=== PATIENT | female | born 1980 | race Asian ===

== ENCOUNTER 2021-02-27 13:38 | Outpatient (CLI) | payer OTHER, SELFPAY ==
--- NOTE | ~2021-02-27 | MR_ITS ---
EXAMINATION: MR brain/brain stem wo con DATE: 02/27/2021 14:25 INDICATION: Dizziness and giddiness. TECHNIQUE: Magnetic resonance imaging (MRI) of the brain and brainstem was performed without intraven ous contrast. Sequences included sagittal and axial T1-weighted FSE, axial diffusion-weighted FS EPI, axial T2*-weighted GRE, axial T2-weighted FLAIR Propeller, and axial T2-weighted Propeller. Apparent diffusion coefficient (ADC) maps were created. COMPARISON: None. FINDINGS: There is no intracranial hemorrhage, acute infarction, or abnormal intracranial mass lesion . The ventricles are normal in size. There is mild mucosal thickening in the ethmoid sinuses. The orb its are normal. The mastoid air cells are normal. IMPRESSION: 1. Normal brain. Reviewed, dictated and finalized at location B. LINER INSTALLER IMPRESSION: 1. Normal brain.
== END 2021-02-27 13:39 | disposition home or self-care (01) ==
LOC: ANHIMG 13:47
PROVIDERS: PCP Family Medicine; Visit Provider Nurse Practitioner Family
DX: R42 Dizziness and giddiness (principal)
CPT/HCPCS: 70551

== ENCOUNTER 2021-12-27 15:05 | Outpatient (CLI) | payer OTHER, SELFPAY ==
[2021-12-27 18:52] LABS: Basophils Absolute Auto 0.1 K/mm3 (0.0-0.1); Basophils Percent Auto 0.6 % (0.2-1.2); Eosinophils Absolute Auto 0.1 K/mm3 (0-0.3); Eosinophils Percent Auto 1.2 % (0-4.4); Hematocrit 35.6 % (37.0-47.0); Hemoglobin 11.5 g/dL (12.0-15.0); Immature Granulocyte Absolute 0.02 K/mm3 (0.00-0.031); Immature Granulocyte Percent A 0.2 % (0-0.5); Lymphocytes Percent Auto 35.3 % (18.3-44.2); Mean Corpuscular HGB Conc 32.3 g/dl (32-36); Mean Corpuscular Hemoglobin 26.1 pg (26-34); Mean Corpuscular Volume 80.9 fl (80-100); Mean Platelet Volume 10.8 fl (7.4-10.4); Monocytes Absolute Auto 0.8 K/mm3 (0.1-0.6); Monocytes Percent Auto 8.1 % (2.6-8.5); Neutrophils Absolute Auto 5.6 K/mm3 (1.3-6.7); Neutrophils Percent Auto 54.6 % (45.5-73.1); Platelet Count Result 374 k/mm3 (150-375); Red Cell Distribution Width 14.9 % (11.5-14.5); White Blood Count 10.2 K/mm3 (4.5-10.0)
[2021-12-27 19:18] LABS: Alanine Aminotransferase 25 U/L (6-35); Albumin Level 4.3 g/dL (3.5-5.1); Alkaline Phosphatase 83 U/L (38-126); Anion Gap 14 mmol/L (8-16); Aspartate Amino Transferase 30 U/L (14-36); Bilirubin,Total 0.1 mg/dL (0.2-1.3); Blood Urea Nitrogen 6 mg/dL (7-17); Carbon Dioxide 26 mmol/L (22-30); Chloride 99 mmol/L (98-107); Estimated Glomerular Filt Rate > 60; Glucose 91 mg/dL (65-110); Potassium 4.1 mmol/L (3.4-5.0); Sodium 139 mmol/L (137-145)
[2021-12-27 19:45] LABS: Appearance Urine Slightly Cloudy (Clear); Bilirubin Urine Negative (Negative); Blood Urine Negative (Negative); Color Urine Yellow (Yellow); Glucose Urine UA Negative (Negative); Ketones Urine Negative (Negative); Leukocyte Esterase Ur 2+ LEU/UL (Negative); Nitrate Urine Negative (Negative); Protein Urine Negative (Negative); Specific Grav Ur 1.025 (1.001-1.035); Urobilinogen Urine 0.2 mg/dL (<2.0); pH Urine 5.5 (5.0-9.0)
[2021-12-27 19:56] LABS: Mucus Urine Rare /lpf; Squamous Epithelial Cell Urine Few /hpf (Few); WBC Urine 21-30 /hpf
[2021-12-27 19:57] LABS: Add Urine Microscopic? YES
== END 2021-12-27 15:06 | disposition home or self-care (01) ==
LOC: ANHGOSHLAB 15:06
PROVIDERS: PCP Emergency Medicine; Visit Provider Emergency Medicine
DX: M54.9 Dorsalgia, unspecified (principal); R59.1 Generalized enlarged lymph nodes
CPT/HCPCS: 36415; 80053; 81001; 85025; 87086

== ENCOUNTER → 2022-01-04 15:23 | Outpatient (CLI) | payer OTHER, SELFPAY ==
--- NOTE | ~2022-01-04 | XR_ITS ---
XR lumbar spine min 4V DATE: 01/04/2022 15:56 INDICATION: Back pain TECHNIQUE: AP, lateral, bilateral oblique and coned lateral lumbosacral views COMPARISON: None FINDINGS: Mild levoscoliosis of the lower thoracic and lumbar spine. Normal alignment of the lumbar s pine. No fracture or bone destruction or spondylolisthesis. The lumbar pedicles are intact. The sacro iliac joints appear normal. IMPRESSION: Mild levoscoliosis Reviewed, dictated and finalized at location A. COIN DEALER IMPRESSION: Mild levoscoliosis
== END ==
PROVIDERS: PCP Emergency Medicine; Visit Provider Emergency Medicine
DX: M54.9 Dorsalgia, unspecified (principal)
CPT/HCPCS: 72110

== ENCOUNTER → 2022-01-12 13:28 | Outpatient (CLI) | payer OTHER, SELFPAY ==
--- NOTE | ~2022-01-12 | US_ITS ---
US renal BI 01/12/2022 14:00 Procedure: Realtime transabdominal ultrasound of the kidneys and bladder. Indication: Right flank pain Comparison: No prior studies for comparison. Findings: Renal echotexture is normal bilaterally without hydronephrosis, contour deforming mass or r enal calculus. The right kidney measures 8 cm and left kidney measures 9.5 cm. Bladder within normal limits. Impression: 1: Unremarkable renal ultrasound. No stones, masses or hydronephrosis. Reviewed, dictated and finalized at location B. HER MUSIC Impression: 1: Unremarkable renal ultrasound. No stones, masses or hydronephrosis.
== END ==
PROVIDERS: PCP Emergency Medicine; Visit Provider Emergency Medicine
DX: M54.9 Dorsalgia, unspecified (principal)
CPT/HCPCS: 76775

== ENCOUNTER 2022-02-05 10:06 | Outpatient (CLI) | payer OTHER, SELFPAY ==
[2022-02-05 11:39] LABS: Cholesterol 235 mg/dL (0-200); HDL Direct 45 mg/dL; Triglycerides 118 mg/dL (<150)
[2022-02-05 11:43] LABS: Hemoglobin A1C 5.8 % (<5.7)
[2022-02-05 11:49] LABS: LDL Cholesterol Direct 135 mg/dL
[2022-02-05 12:44] LABS: Folic Acid 15.8 ng/mL (2.76->20)
[2022-02-05 12:51] LABS: Vitamin D 25 Hydroxy 37.6 ng/mL
== END 2022-02-05 10:07 | disposition home or self-care (01) ==
LOC: ANHLAB 10:07
PROVIDERS: PCP Emergency Medicine; Visit Provider Emergency Medicine
DX: E66.9 Obesity, unspecified (principal); R53.83 Other fatigue; E55.9 Vitamin D deficiency, unspecified; Z01.419 Encounter for gynecological examination (general) (routine) without abnormal findings; Z13.220 Encounter for screening for lipoid disorders; Z13.29 Encounter for screening for other suspected endocrine disorder; Z13.1 Encounter for screening for diabetes mellitus
CPT/HCPCS: 36415; 80061; 82306; 82607; 82746; 83036; 84443

== ENCOUNTER 2022-03-25 09:00 | Outpatient (RCR) | payer OTHER, SELFPAY ==
--- NOTE | 2022-02-07 13:41 | PTOPEVAL1 ---
Assessment and note entered by Jayson Christensen, PT Evaluation Information Assessment Status Evaluation Diagnosis low back pain with radiating symptoms down the R LE. Onset about 6 weeks ago Subjective Information Shawanda reports she has been having low back pain for 6 weeks more on the R side and the occasional radiating pain going down to her thigh or ankle, rarely does she feel it all at once. 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 More pain with sitting than with standing or walking. Has been holding off going to the gym since the pain started and would like to get back to going on the eliptical machine, exercises bike, and stepper. No issues with sleeping. Reported Pain Level Pain Score 6: Self Report Additional Pain Score Comments not currently radiating down the RLE. Assessment PT Clinical Summary Shawanda is a 41 year old female coming into the clinic for R low back pain with occasional radiating symptoms down the R LE. She has tightness in RON calfs and quads along with weakness in her low back, core, and glute muscles. Physical therapy will work on improving muscle alignment through stretches and general strengthening along with manual therapy and modalities to work on pain control. Physical therapy is fine with patient going back on the eliptical machine and attempting the stepper, but holding off the bike for right now. Plan of Care Interventions Electrical Stimulation,Gait Training,Hot Pack/Cold Pack,Manual Therapy,Mechanical Traction,Neuro Re- education,Patient/Caregiver Education,Therapeutic Activities,Therapeutic Exercise,Ultrasound PT Services Indicated Yes Treatment Frequency and 1-2x/wk Duration These treatments will address the objective and functional deficits as defined above. The patient will be advanced safely and appropriately in order for the patient to progress towards his/her prior level of function. Additional exercises will be introduced and as well as a comprehensive home exercise program upon discharge, if needed, ?to ensure carryover of functional gains achieved in the clinic. This treatment plan has been reviewed and agreement upon by the patient.
--- NOTE | 2022-02-07 13:41 | PTOPEVAL1 ---
Assessment and note entered by Jayson Christensen, PT Evaluation Information Assessment Status Evaluation Diagnosis low back pain with radiating symptoms down the R LE. Onset about 6 weeks ago Subjective Information Shawanda reports she has been having low back pain for 6 weeks more on the R side and the occasional radiating pain going down to her thigh or ankle, rarely does she feel it all at once. 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 More pain with sitting than with standing or walking. Has been holding off going to the gym since the pain started and would like to get back to going on the eliptical machine, exercises bike, and stepper. No issues with sleeping. Reported Pain Level Pain Score 6: Self Report Additional Pain Score Comments not currently radiating down the RLE. Assessment PT Clinical Summary Shawanda is a 41 year old female coming into the clinic for R low back pain with occasional radiating symptoms down the R LE. She has tightness in RON calfs and quads along with weakness in her low back, core, and glute muscles. Physical therapy will work on improving muscle alignment through stretches and general strengthening along with manual therapy and modalities to work on pain control. Physical therapy is fine with patient going back on the elliptical machine and attempting the stepper, but holding off the bike for right now. Plan of Care Interventions Electrical Stimulation,Gait Training,Hot Pack/Cold Pack,Manual Therapy,Mechanical Traction,Neuro Re- education,Patient/Caregiver Education,Therapeutic Activities,Therapeutic Exercise,Ultrasound PT Services Indicated Yes Treatment Frequency and 1-2x/wk Duration These treatments will address the objective and functional deficits as defined above. The patient will be advanced safely and appropriately in order for the patient to progress towards his/her prior level of function. Additional exercises will be introduced and as well as a comprehensive home exercise program upon discharge, if needed, ?to ensure carryover of functional gains achieved in the clinic. This treatment plan has been reviewed and agreement upon by the patient.
--- NOTE | 2022-03-03 15:19 | PTOPPROG ---
Assessment and note entered by Amada Briscoe DPT Evaluation Information Assessment Status Progress Diagnosis low back pain with radiating symptoms down the R LE. Onset about 6 weeks ago Subjective Information Highest pain in last week 08/29 and lowest pain . Overall feels some relief of pain (not as bad as often) but is still having it. Started noticing some pain in her lateral lower left leg a few days ago. Unsure what is causing her pain to get worse right now. No MD appointment scheduled yet, may be getting MRI soon. Assessment PT Clinical Summary The patient has made some progress in therapy. She reports slight decreases in pain and it is not as intense as often, but continues to have pain and notices some in her lateral left calf as well. She demonstrates improved LE strength. Due to her progress but continued pain and limitations, she will benefit from further therapy to decrease pain and improve function. Plan of Care Interventions Electrical Stimulation,Hot Pack/Cold Pack,Manual Therapy,Neuro Re-education,Patient/Caregiver Education,Therapeutic Activities,Therapeutic Exercise,Self-Care/Home Management PT Services Indicated Yes Treatment Frequency and 2 times a week for 2 weeks (starting 03/14/22) Duration These treatments will address the objective and functional deficits as defined above. The patient will be advanced safely and appropriately in order for the patient to progress towards his/her prior level of function. Additional exercises will be introduced and as well as a comprehensive home exercise program upon discharge, if needed, ?to ensure carryover of functional gains achieved in the clinic. This treatment plan has been reviewed and agreement upon by the patient.
--- NOTE | 2022-03-25 09:38 | PTOPPROG ---
Assessment and note entered by Amada Briscoe DPT Evaluation Information Assessment Status Progress Diagnosis low back pain with radiating symptoms down the R LE. Onset about 6 weeks ago Subjective Information Pt reports therapy is going ok. Hard to tell at times if anything is better, the pain is definitely not gone. Has had some days with a lot of pain and then other days with minimal pain. Some pain down her leg as well. Highest pain 7/10 in the last week, lowest 5/10. Assessment PT Clinical Summary The patient has been seen in physical therapy for 9 visits total. She reports minimal change to her pain at this time, with the highest being 7/10 and lowest 5/10. She continues to display some pain with lumbar motion and decreased lower extremity strength. Due to her limited progress, recommending the patient follow up with her physician and hold therapy at this time. May resume therapy at a later date based on her follow up. Plan of Care PT Services Indicated No These treatments will address the objective and functional deficits as defined above. The patient will be advanced safely and appropriately in order for the patient to progress towards his/her prior level of function. Additional exercises will be introduced and as well as a comprehensive home exercise program upon discharge, if needed, ?to ensure carryover of functional gains achieved in the clinic. This treatment plan has been reviewed and agreement upon by the patient.
--- NOTE | 2022-05-13 09:59 | PTOPDC ---
Assessment and note entered by Amada Briscoe DPT Evaluation Information Assessment Status Assessment PT Clinical Summary The patient has been seen in physical therapy for 9 visits total. She reports minimal change to her pain at this time, with the highest being 7/10 and lowest 5/10. She continues to display some pain with lumbar motion and decreased lower extremity strength. Due to her limited progress, recommending the patient follow up with her physician and hold therapy at this time. May resume therapy at a later date based on her follow up. Plan of Care Interventions PT Services Indicated No Treatment Frequency and Duration
== END 2022-04-26 13:21 | disposition home or self-care (01) ==
LOC: ANHPT 09:00
PROVIDERS: PCP Emergency Medicine; Visit Provider Emergency Medicine
DX: M54.9 Dorsalgia, unspecified (principal)
CPT/HCPCS: 97014; 97110; 97140; 97161; 97530; G0283

== ENCOUNTER 2022-12-20 09:45 | Outpatient (CLI) | payer OTHER, SELFPAY ==
--- NOTE | ~2022-12-20 | US_ITS ---
EXAMINATION: US transvaginal DATE: 12/20/2022 10:52 INDICATION: Menorrhagia Comparison:No prior studies for comparison. TECHNIQUE: Multiple endovaginal sonographic images of the pelvis performed. FINDINGS: The uterus measures 6.8 x 3.9 x 5.7 cm. There are nabothian cysts. The endometrial complex measures 6 mm. The right ovary measures 3 x 1.6 x 2.5 cm and the left ovary measures 3.1 x 1.9 x 1.4 cm. There are small follicles in each ovary. Normal doppler signal in both ovaries. There is no free fluid in the pelvis. There are no abnormal masses seen on either side. IMPRESSION: 1. Unremarkable pelvic ultrasound. Reviewed, dictated and finalized at location A.
== END 2022-12-20 09:46 ==
PROVIDERS: PCP Advanced Practice Midwife; Visit Provider Advanced Practice Midwife
DX: N93.8 Other specified abnormal uterine and vaginal bleeding (principal)
CPT/HCPCS: 76830

== ENCOUNTER 2023-01-05 08:40 | Outpatient (CLI) | payer OTHER, SELFPAY ==
--- NOTE | ~2023-01-05 | MR_ITS ---
EXAMINATION: MR brain/brain stem wo/w con DATE: 01/05/2023 09:29 INDICATION: Paresthesia of skin. TECHNIQUE: Magnetic resonance imaging (MRI) of the brain and brainstem was performed without and with 15 mL MultiHance intravenous contrast. COMPARISON: Brain MRI 02/27/2021 FINDINGS: There is no intracranial hemorrhage, acute infarction, or abnormal intracranial mass lesion . The ventricles are normal in size. There is mild mucosal thickening in the ethmoid sinuses. The orb its are normal. The mastoid air cells are normal. IMPRESSION: 1. Normal brain. Reviewed, dictated and finalized at location A. SIZER IMPRESSION: 1. Normal brain.
== END 2023-01-05 08:41 | disposition home or self-care (01) ==
PROVIDERS: PCP Emergency Medicine; Visit Provider Emergency Medicine
DX: R20.2 Paresthesia of skin (principal); M79.601 Pain in right arm; M79.602 Pain in left arm
CPT/HCPCS: 70553; A9577

== ENCOUNTER 2023-04-26 08:41 | Outpatient (CLI) | payer OTHER, SELFPAY ==
--- NOTE | ~2023-04-26 | CT_ITS ---
EXAMINATION: CT brain wo con INDICATION: Headache COMPARISON: None TECHNIQUE: Standard unenhanced head CT. The dose-length product (DLP) was 605.33 mGy-cm. The mA was a djusted according to patient size. Iterative reconstruction technique was employed. FINDINGS: No intracranial hemorrhage, acute infarction, or abnormal mass lesion. The ventricles are n ormal. No abnormal mass effect or midline shift. The gaitan-white matter differentiation is normal. The basal cisterns are patent. The orbits are normal. The paranasal sinuses, mastoids and calvarium are normal. IMPRESSION: 1. No acute intracranial abnormality. Reviewed, dictated and finalized at location B. FURNACE INSTALLER
== END 2023-04-26 08:42 | disposition home or self-care (01) ==
PROVIDERS: PCP Emergency Medicine; Visit Provider Emergency Medicine
DX: R51.9 Headache, unspecified (principal)
CPT/HCPCS: 70450

== ENCOUNTER 2023-05-04 08:15 | Outpatient (RCR) | payer OTHER, SELFPAY ==
--- NOTE | 2023-02-23 10:09 | PTOPEVAL1 ---
Assessment and note entered by Tyler Kuhn Evaluation Information Assessment Status Evaluation Diagnosis lumbar radiculopathy, cervical radiculopathy Onset 10/24/22 Subjective Information Pt. reports that she has had neck and low back pain for about 4 months. She reports she has underwent MRI which revealed disc bulging in her neck. She reports pain is located across the shoulder blades, into the neck and into the arms. She also describes pain across the low back. She reports that both the neck and low back pain are intermittent. She reports that neck and low back pain are increased with long periods of sitting and standing. She reports that bending to lift objects will increase her neck and back pain. She states that she has little trouble with sleep. She reports that walking for a duration of 1 hour will increase her pain. She reports that she was offered injections, but chose not to have them. She reports that her goal is to reduce her low back and neck pain. Reported Pain Level Pain Score 5,2: Self Report Assessment PT Clinical Summary Pt. is a 42 year old female who enters the clinic with neck and low back pain. She presents with impaired postural awareness, pain, impaired flexibility and funcitonal decline. Continued skilled PT is indicated in order to improve these areas to improve comfort with all IADL's. Plan of Care Interventions Electrical Stimulation,Hot Pack/Cold Pack,Manual Therapy,Patient/Caregiver Educati,Therapeutic Activities,Therapeutic Exercise PT Services Indicated Yes Treatment Frequency and 2x/week x 10 visits Duration These treatments will address the objective and functional deficits as defined above. The patient will be advanced safely and appropriately in order for the patient to progress towards his/her prior level of function. Additional exercises will be introduced and as well as a comprehensive home exercise program upon discharge, if needed, ?to ensure carryover of functional gains achieved in the clinic. This treatment plan has been reviewed and agreement upon by the patient.
--- NOTE | 2023-03-22 10:25 | PCPTNOTE ---
Pt. cancelled her appointment on this date. Tyler Kuhn, MPT
--- NOTE | 2023-04-19 08:49 | PCPTNOTE ---
Pt. called and cancelled her scheduled appointment on this date. Pt. did not provide a reason for cancellation. Tyler Kuhn, MPT
--- NOTE | 2023-05-04 09:20 | PTOPDC ---
Assessment and note entered by Tyler Kuhn Evaluation Information Assessment Status Discharge Diagnosis lumbar radiculopathy, cervical radiculopathy Onset 10/24/22 Subjective Information Pt. reports that her low back is doing much better . She reports that her pain is less intense. She states that exercise has helped to reduce pain, but she has not been able to perform exercise the past couple days. she reports development of recent headaches and has been doing testing with her doctor to determine the cause of the headaches . She states that she still has neck pain, but it is also less intense. She reports that she will continue with exercise at this time and is ready for discharge. Reported Pain Level Pain Score 4,3: Self Report Assessment PT Clinical Summary Pt. demonstrates improvements in flexibility, strength and postural awareness. She continues to have pain despite these improvements. She is informed to continue with her HEP to continue to improve strength and mobility. At this time she will be discharged from our care. Plan of Care PT Services Indicated No
== END 2023-05-04 09:40 | disposition home or self-care (01) ==
LOC: ANHPT 08:15
PROVIDERS: PCP Emergency Medicine; Visit Provider Emergency Medicine
DX: M47.22 Other spondylosis with radiculopathy, cervical region (principal); M54.16 Radiculopathy, lumbar region
CPT/HCPCS: 97014; 97110; 97112; 97140; 97161; 97530; G0283

== ENCOUNTER 2023-08-25 10:51 | Outpatient (CLI) | payer OTHER, SELFPAY ==
--- NOTE | ~2023-08-25 | MM_ITS ---
EXAMINATION: MM screening tan BI w richie HISTORY: Screening mammogram TECHNIQUE: Craniocaudal and mediolateral oblique 3-D tomosynthesis images were obtained and synthetic 2-D images were generated. CAD analysis was submitted and interpreted. COMPARISON: No prior mammogram is available for comparison at this institution. BREAST PARENCHYMAL COMPOSITION:Not Dense. The breasts are almost entirely fatty FINDINGS: No suspicious mass, calcification, or architectural distortion are identified in either edouard ast to suggest malignancy. There has been no suspicious interval change. IMPRESSION: No mammographic evidence of malignancy. Recommend routine screening mammography in one year. BI-RADS Category 1: Negative Reviewed, dictated and finalized at location .
== END 2023-08-25 10:52 ==
LOC: MICIMG 10:52
PROVIDERS: PCP Obstetrics & Gynecology Gynecology; Visit Provider Obstetrics & Gynecology Gynecology
DX: Z12.31 Encounter for screening mammogram for malignant neoplasm of breast (principal)
CPT/HCPCS: 77063; 77067

== ENCOUNTER 2024-04-15 13:31 | Outpatient (CLI) | payer OTHER, SELFPAY ==
--- NOTE | ~2024-04-15 | US_ITS ---
EXAMINATION: US soft tissue UE RT, US soft tissue lower back, US soft tissue UE LT DATE: 04/15/2024 14:18 INDICATION: Multiple palpable nodules at the left and right upper extremities and the lower back. TECHNIQUE: Multiple grayscale and Doppler ultrasound images of the palpable abnormalities at the james ons of concern at the right and left upper extremities and at the left lower back were obtained. COMPARISON: None FINDINGS: There are multiple palpable abnormalities corresponding to subcutaneous nodules which are each slight ly hyperechoic but with similar echotexture to the surrounding subcutaneous fat and without increased internal vascular flow or surrounding hyperemia on color Doppler. While nonspecific the appearance w ould be most consistent with and statistically most likely to represent lipomas. In the right upper extremities include a 6 x 6 x 4 mm nodule near the right elbow, a 1.1 x 1.2 x 0.5 cm nodule at the ulnar side of the mid right forearm and a 7 x 5 x 3 mm at the anterior mid right for earm. In the left upper extremities including nodule at the mid left upper arm measuring 1.2 x 0.9 x 1.2 cm , also at the mid left upper arm measuring 6 x 6 x 5 mm and a couple in the distal upper arm near the elbow measuring 9 x 6 x 4 mm and 8 x 8 x 3 mm and finally a 6 x 2 x 6 mm nodule at the left lower mi d arm. At the lower back the nodule measures 1.2 x 0.7 x 0.8 cm on the left and 8 x 5 x 4 mm on the right. IMPRESSION: 1. The palpable abnormalities of concern correspond to multiple similar-appearing subcutaneous nodule s which are slightly hyperechoic but with similar echotexture to the surrounding subcutaneous fat whi ch would be most consistent with and statistically most likely to represent lipomas. These vary in si ze from 6 x 6 x 4 mm to 1.2 x 1.2 x 0.9 cm. Reviewed, dictated and finalized at location B. MIDWIFE IMPRESSION: 1. The palpable abnormalities of concern correspond to multiple similar-appeari ng subcutaneous nodules which are slightly hyperechoic but with similar echotex ture to the surrounding subcutaneous fat which would be most consistent with an d statistically most likely to represent lipomas. These vary in size from 6 x 6 x 4 mm to 1.2 x 1.2 x 0.9 cm. IMPRESSION: 1. The palpable abnormalities of concern correspond to multiple similar-appeari ng subcutaneous nodules which are slightly hyperechoic but with similar echotex ture to the surrounding subcutaneous fat which would be most consistent with an d statistically most likely to represent lipomas. These vary in size from 6 x 6 x 4 mm to 1.2 x 1.2 x 0.9 cm.
== END 2024-04-15 13:32 | disposition home or self-care (01) ==
PROVIDERS: PCP Emergency Medicine; Visit Provider Registered Nurse
DX: R59.0 Localized enlarged lymph nodes (principal)
CPT/HCPCS: 76705; 76882